=== PATIENT | male | born 2000 | race Caucasian/White ===

== ENCOUNTER 2020-05-20 17:05 | Emergency (ER) | payer OTHER, SELFPAY ==
--- NOTE | ~2020-05-20 | CT_ITS ---
EXAMINATION: CT abdomen pelvis w con DATE: 05/20/2020 20:40 INDICATION: Right lower quadrant abdominal pain. TECHNIQUE: Computed tomography (CT) of the abdomen and pelvis was performed with 100 mL Omnipaque 350 intravenous contrast. Automated exposure control and iterative reconstruction technique were employe d. The dose-length product was 324.31 mGy-cm. COMPARISON: None. FINDINGS: The visualized portions of the lung bases are clear without pneumonia or pleural effusion. The heart size is normal. No pericardial effusion. The liver, gallbladder, spleen, pancreas, adrenal glands, and kidneys are normal. There are no dilated loops of bowel. The appendix is normal. There ar e no pathologically enlarged lymph nodes. There is no free intraperitoneal fluid. There is levocurvat ure of lumbar spine. IMPRESSION: 1. No etiology for the patient's symptoms. Reviewed, dictated and finalized at location A. [employer] [facility]
[2020-05-20 18:05] VITALS: BP 107/65; PULSE 68; RESP 18; TEMP 37.3; O2SAT 97
[2020-05-20 18:23] LABS: Basophils Absolute Auto 0.1 K/mm3 (0.0-0.1); Basophils Percent Auto 0.7 % (0.2-1.2); Eosinophils Absolute Auto 0.1 K/mm3 (0-0.3); Eosinophils Percent Auto 1.7 % (0-4.4); Hematocrit 42.8 % (42.0-52.0); Hemoglobin 15.1 g/dL (14.0-18.0); Immature Granulocyte Absolute 0.02 K/mm3 (0.00-0.031); Immature Granulocyte Percent A 0.3 % (0-0.5); Lymphocytes Absolute Auto 2.45 K/mm3 (0.9-3.2); Lymphocytes Percent Auto 31.9 % (18.3-44.2); Mean Corpuscular HGB Conc 35.3 g/dl (32-36); Mean Corpuscular Hemoglobin 32.2 pg (26-34); Mean Corpuscular Volume 91.3 fl (80-100); Monocytes Absolute Auto 0.7 K/mm3 (0.1-0.6); Monocytes Percent Auto 8.8 % (2.6-8.5); Neutrophils Absolute Auto 4.4 K/mm3 (1.3-6.7); Neutrophils Percent Auto 56.6 % (45.5-73.1); Platelet Count Result 247 k/mm3 (150-375); Red Blood Count 4.69 M/mm3 (4.6-6.20); White Blood Count 7.7 K/mm3 (4.5-10.0)
[2020-05-20 18:34] LABS: Potassium 4.3 mmol/L (3.4-5.0)
[2020-05-20 18:38] LABS: Alanine Aminotransferase 22 U/L (4-50); Albumin Level 4.7 g/dL (3.5-5.1); Alkaline Phosphatase 64 U/L (38-126); Anion Gap 9 mmol/L (8-16); Aspartate Amino Transferase 25 U/L (17-59); Bilirubin,Total 0.5 mg/dL (0.2-1.3); Blood Urea Nitrogen 20 mg/dL (9-20); Calcium 9.7 mg/dL (8.4-10.2); Carbon Dioxide 30 mmol/L (22-30); Chloride 102 mmol/L (98-107); Estimated CRCL calculation 118 ml/min; Estimated Glomerular Filt Rate > 60; Glucose 102 mg/dL (75-110); Lipase 58 U/L (23-300); Sodium 141 mmol/L (137-145)
--- NOTE | 2020-05-20 19:05 | ED.ABDPAIN ---
HPI - Abdominal Pain General Chief Complaint: Abdominal Pain Stated Complaint: abdominal pain, sent from [facility] Time Seen by Provider: 05/20/20 19:03 Source: patient and family Mode of arrival: ambulatory Limitations: no limitations History of Present Illness HPI narrative: Patient is a 20-year-old male who presents from [facility] urgent care for evaluation of right lower quadrant pain. Patient with right lower quadrant pain beginning this afternoon. Described as dull, aching in nature with radiation to the right flank. Patient with associated pain with movement. No other exacerbating features. He has had associated nausea without vomiting. He denies fever or chills. No testicular pain or bulging. No recent heavy lifting, trauma or mechanism that would cause the pain. No history of abdominal surgeries. No urinary symptoms. No diarrhea or constipation. Related Data Allergies Allergy/AdvReac Type Severity Reaction Status Date / Time No Known Allergies Allergy Unverified 05/20/20 18:57 Review of Systems Review of Systems: Narrative: CONSTITUTIONAL: Denies fever, chills, or sweats. ENT: Denies rhinorrhea, congestion, sore throat, or otalgia. CARDIOVASCULAR: Denies chest pain RESPIRATORY: Denies cough or dyspnea. GASTROINTESTINAL: Reports right lower quadrant abdominal pain and nausea GENITOURINARY: Denies dysuria or hematuria. SKIN: Denies rash or itching. MUSCULOSKELETAL: Reports mild right flank pain, denies joint pain, or myalgia. NEUROLOGIC: Denies headache, numbness, or weakness. [facility] Past Medical History Medical History (Updated 05/20/20 @ 20:55 by Leticia Wright MD) Pneumothorax Surgical History Surgical History (Updated 05/20/20 @ 19:25 by Leticia Wright MD) H/O chest tube placement Social History Social History (Updated 05/20/20 @ 19:25 by Leticia Wright MD) Smoking status: Never smoker Alcohol intake: current Alcohol use details: Social, rarely Substance use: never Living arrangements: with family Gender identity (if verbalized by the patient): Male Exam Narrative: Exam Narrative: GENERAL: Awake, alert, conversant HEAD: Normocephalic, atraumatic. EYES: PERRLA and EOMI. ENT: Nares clear, no rhinorrhea or epistaxis. Mucous membranes moist. NECK: Supple. CHEST: No respiratory distress, breathing even and non labored, bilateral breath sounds, clear to auscultation bilaterally HEART: Regular rate, sinus rhythm ABDOMEN:Non distended, tender in the right lower quadrant, positive rebound, no guarding, nonrigid EXTREMITIES: Normal range of motion. No edema. SKIN: Warm, dry, no rash. NEURO:No focal deficits. Alert and oriented x3 Course Vital Signs Vital signs: Vital Signs Temperature 37.3 C 05/20/20 18:05 Pulse Rate 68 05/20/20 18:05 Respiratory Rate 18 05/20/20 18:05 Blood Pressure 107/65 05/20/20 18:05 Pulse Oximetry 97 05/20/20 18:05 Temperature 37.3 C 05/20/20 18:05 Pulse Rate 60 05/20/20 20:49 Respiratory Rate 19 05/20/20 20:49 Blood Pressure 117/82 05/20/20 20:49 Pulse Oximetry 99 05/20/20 20:49 MDM - Abdominal Pain MDM Narrative Medical decision making narrative: Patient presented for evaluation of right lower quadrant abdominal pain. It does seem to be worse with movement, may be musculoskeletal in etiology, wanted to rule out any intra-abdominal pathology. IV access obtained and labs are drawn. Patient is afebrile. No tachycardia. No leukocytosis. No transaminitis. No UTI. No acute findings on CT abdomen/pelvis to be suggestive of pyelonephritis, appendicitis or cholecystitis. Again, patient may have abdominal wall muscle strain versus early appendicitis. Shared decision-making occurred with the patient, he would like to trial outpatient management, watchful waiting, I explained the importance of return should he develop fever greater than 100.4 Fahrenheit, recurrent vomiting, severe pain and that he should re
--- NOTE | 2020-05-20 19:09 | PC.NURSE ---
received report from syed nazario. assuming care of pt at this time.
[2020-05-20 19:12] LABS: Add Urine Microscopic? YES; Appearance Urine Cloudy (Clear); Bilirubin Urine Negative (Negative); Blood Urine Negative (Negative); Color Urine Yellow (Yellow); Glucose Urine UA Negative (Negative); Ketones Urine Negative (Negative); Leukocyte Esterase Ur Negative LEU/UL (Negative); Nitrate Urine Negative (Negative); Protein Urine 1+ mg/dL (Negative); RBC Urine 0-2 /hpf (0-2); Specific Grav Ur 1.026 (1.001-1.035); Squamous Epithelial Cell Urine Rare /hpf (Few); Urobilinogen Urine Negative mg/dL (<2.0); WBC Urine 0-3 /hpf
[2020-05-20] MEDS: SODIUM CHLORIDE 0.9% IV 1,000 ML 999 ML IV CONT (19:28)
[2020-05-20] MEDS: ONDANSETRON INJ 4 MG/2 ML VIAL IV PUSH (19:30)
[2020-05-20] MEDS: MORPHINE SULFATE (*CRX) 4 MG/ML INJ IV PUSH (19:30)
[2020-05-20 20:49] VITALS: BP 117/82; PULSE 60; RESP 19; O2SAT 99
[2020-05-20 21:32] VITALS: BP 115/80; PULSE 81; RESP 18; O2SAT 99
== END 2020-05-20 21:33 | disposition home or self-care (01) ==
PROVIDERS: Emergency Medicine; Emergency Provider Emergency Medicine; PCP Nurse Practitioner
DX: R10.31 Right lower quadrant pain (principal)
CPT/HCPCS: 36415; 74177; 80053; 81001; 83690; 85025; 96361; 96374; 96375; 99284; J0131; J2270; J2405; J7030; Q9967

== ENCOUNTER 2020-09-30 10:05 | Outpatient (CLI) | payer OTHER, SELFPAY | END 2020-09-30 10:06 | disposition home or self-care (01) | LOC: ANHCOVIDVC 10:05 | PROVIDERS: PCP Nurse Practitioner | DX: Z23 Encounter for immunization (principal) | CPT/HCPCS: 0001A; 91300 ==

== ENCOUNTER 2020-10-21 10:04 | Outpatient (CLI) | payer OTHER, SELFPAY | END 2020-10-21 10:05 | disposition home or self-care (01) | LOC: ANHCOVIDVC 10:04 | PROVIDERS: PCP Nurse Practitioner | DX: Z23 Encounter for immunization (principal) | CPT/HCPCS: 0002A; 91300 ==